=== PATIENT | male | born 1940 | race African-American/Black ===

== ENCOUNTER → 2016-11-05 | Outpatient (CLI) | payer MEDICARE, OTHER | END | disposition home or self-care (01) | LOC: PCVCCLINIC 15:09 | PROVIDERS: ATTEND Internal Medicine | DX: I47.1 Supraventricular tachycardia (principal); I12.9 Hypertensive chronic kidney disease with stage 1 through stage 4 chronic kidney disease, or unspecified chronic kidney disease; N18.3 Chronic kidney disease, stage 3 (moderate); I65.23 Occlusion and stenosis of bilateral carotid arteries; E78.5 Hyperlipidemia, unspecified; I48.0 Paroxysmal atrial fibrillation; M19.90 Unspecified osteoarthritis, unspecified site; Z96.642 Presence of left artificial hip joint; Z79.82 Long term (current) use of aspirin; Z87.891 Personal history of nicotine dependence | CPT/HCPCS: 93005; G0463 ==

== ENCOUNTER → 2016-11-20 | Outpatient (CLI) | payer MEDICARE, OTHER ==
[~2016-11-20] MED LIST: REGADENOSON 0.4 MG/5 ML DISP.SYRIN. IV ONE
--- NOTE | 2016-11-20 09:22 | PCVCIMAG ---
APPROVED REPORT Study performed: 11/20/2016 08:34:07 EXAM: Comprehensive 2D, Doppler, and color-flow Echocardiogram Status: routine BSA: 1.88 HR: 62 bpmBP: 150/85 mmHg Rhythm: NSR Other Information Study Quality: Good Risk Factors: Cardiac Risk Factors: HTN, Hyperlipidemia Indications Hypertension/HDD Renal Disease, Atrial tachycardia. 2D Dimensions LVEF(%): 64.30 (>50%) IVSd: 12.45 (7-11mm)LVOT Diam: 18.52 (18-24mm) LVDd: 46.49 mm PWd: 12.54 (7-11mm)Ascending Ao: 28.16 (22-36mm) LVDs: 30.22 (25-40mm) Left Atrium: 33.61 (27-40mm) Aortic Root: 28.78 mm LV Single Plane 4CH: 53.48 % LV Single Plane 2CH: 54.69 %[place] LVEF: 54.08 % Biplane EF: 54.4 % Volumes Left Atrial Volume (Systole) Single Plane 4CH: 31.37 mLSingle Plane 2CH: 38.09 mL LA ESV Index: 37.00 mL/m2 Aortic Valve AoV Peak Juan Francisco.: 1.34 m/s AO Peak Gr.: 7.18 mmHgLVOT Max P.63 mmHg LVOT Max V: 0.81 m/s NOE Vmax: 1.63 cm2 Mitral Valve E/A Ratio: 0.9 MV Decel. Time: 198.02 ms MV E Max Juan Francisco.: 0.74 m/s MV A Juan Francisco.: 0.86 m/s IVRT: 179.93 ms TDI E/Lateral E': 12.33E/Medial E': 14.80 Medial E' Juan Francisco.: 0.05 m/s Lateral E' Juan Francisco.: 0.06 m/s Pulmonary Valve PV Peak Gr.: 2.16 mmHg Pulmonary Vein P Vein S: 0.60 m/sP Vein A: 0.31 m/s P Vein D: 0.30 m/sP Vein A Dur.: 90.0 msec P Vein S/D Ratio: 2.00 Tricuspid Valve TR Peak Juan Francisco.: 2.93 m/s TR Peak Gr.: 34.29 mmHg Left Ventricle The left ventricle is normal size. There is normal LV segmental wall motion. Mild concentric left ventricular hypertrophy. Left ventricular systolic function is normal. The left ventricular ejection fraction is within the normal range. LVEF is 55%. Grade I diastolic dysfunction Right Ventricle The right ventricle is normal size. The right ventricular systolic function is normal. Atria The left atrium size is normal. The right atrium size is normal. Aortic Valve Trileaflet aortic valve, mildly sclerotic No aortic regurgitation is present. There is no aortic valvular stenosis. Mitral Valve The mitral valve is normal in structure. Trace to mild mitral valve regurgitation noted. No evidence of mitral valve stenosis. Tricuspid Valve The tricuspid valve is normal in structure. Trace tricuspid regurgitation. Pulmonary artery pressure is 41mmhg. Pulmonic Valve The pulmonary valve is normal in structure. Trace pulmonic regurgitation. Great Vessels The aortic root is normal in size. IVC is normal in size and collapses with >50% inspiration Pericardium There is no pericardial effusion. <Conclusion> Left ventricular systolic function is normal. There is normal LV segmental wall motion. Mild concentric left ventricular hypertrophy. LVEF is 55%. Grade I diastolic dysfunction Trileaflet aortic valve, mildly sclerotic, no aortic valvular stenosis or insufficiency. The mitral valve is normal in structure.Trace to mild mitral valve regurgitation Pulmonary artery pressure of 40mmHg There is no pericardial effusion.
--- NOTE | 2016-11-20 13:10 | PCVCIMAG ---
APPROVED REPORT Exam: Nuclear Stress Test Indication: Chest pain, Abn EKG, Paroxysmal Atrial Tachycardia Patient Location: Out-Patient Stress Nurse: Melania Mckeon RN, Tiana Henry RN MI Tech:Fadi JoinerCAMB Ht: 5 ft 5 in Wt: 186 lbs BSA: 1.92 m2 HR: 67 bpm BP: 200/94 mmHg BMI: 30.9 Rhythm: SR, ST and T Medical History Medical History: Age, Hyperlipidemia, HTN, CAD, CEA, Former Smoker Medications: ASA, Bumex, Clonidine, Doxazosin, Metoprolol (held 24 hours) Allergies: NKDA Pretest Chest Pain Characteristics: No chest pain Exercise History: Sedentary NM EXAM: Myocardial Perfusion REST/STRESS Imaging Protocol: Rest Tc-99m/Stress Tc-99m 1 day Resting Data Rest SPECT myocardial perfusion imaging was performed in supine position 45 minutes following the intravenous injection of 10.9 mCi of Tc-99m Sestamibi. Time of rest injection: 0930 Date: 11/20/2016 Pharmacologic Stress Pharmacologic stress test was performed by injecting Regadenoson 0.4 mg IV push followed by the intravenous injection of 35.3 mCi of Tc-99m Sestamibi. Time of stress injection: 1100 Date: 11/20/2016 The images were gated to evaluate regional wall motion and calculate left ventricular ejection fraction. Study Quality Study: Good Study Data Post stress, the left ventricular ejection was 76%.. SSS: 10 SRS: 1 SDS: 9 TID = 0.74. Perfusion Medium sized area of moderate reversible ischemia involving the basal inferior and mid/apical inferolateral left ventricle consistent with a circumflex distribution. Wall Motion Normal left ventricular size and function with no regional wall motion abnormalities. Nuclear Conclusion Medium sized area of moderate reversible ischemia involving the basal inferior and mid/apical inferolateral left ventricle consistent with a circumflex distribution. Normal left ventricular size and function with no regional wall motion abnormalities. No prior study available for comparison. Interpreted by: Andrew Wilson MD Electronically Approved: 11/20/2016 12:58:37 Stress Test Details Stress Test: Pharmacologic stress testing performed using 0.4 mg of regadenoson per 5 mL given IV over 10 seconds. Reason for pharmacologic stress test: physical limitation. HR Resting HR: 67 bpmMax Heart Rate (APMHR): 144 bpm Max HR Achieved: 86 bpmTarget HR (85% APMHR): 122 bpm % of APMHR: 59 Recovery HR: 82 bpm BP Resting BP: 200/94 mmHg Max BP: 196/102 mmHg ECG Resting ECG: Sinus Rhythm, nonspecific ST-T abnormalities Stress ECG: Sinus Rhythm, nonspecific ST-T abnormalities Arrhythmia: VPC's Recovery ECG: Sinus Rhythm, nonspecific ST-T abnormalities Clinical Reason for Termination: Completed protocol Stress Symptoms: None Exercise duration: min 55 sec Exercise capacity: 1.0 METs Scale: Active Stress ECG Conclusion Clinical: Non-ischemic ECG: Non-ischemic <Conclusion> Clinical: Non-ischemic ECG: Non-ischemic
== END | disposition home or self-care (01) ==
LOC: PCVCIMAG 08:26
PROVIDERS: ATTEND Internal Medicine
DX: I08.1 Rheumatic disorders of both mitral and tricuspid valves (principal); I47.1 Supraventricular tachycardia; I12.9 Hypertensive chronic kidney disease with stage 1 through stage 4 chronic kidney disease, or unspecified chronic kidney disease; N18.3 Chronic kidney disease, stage 3 (moderate); I65.23 Occlusion and stenosis of bilateral carotid arteries; R94.31 Abnormal electrocardiogram [ECG] [EKG]; K52.9 Noninfective gastroenteritis and colitis, unspecified; I73.9 Peripheral vascular disease, unspecified; E78.5 Hyperlipidemia, unspecified; I48.0 Paroxysmal atrial fibrillation; M06.9 Rheumatoid arthritis, unspecified; Z87.891 Personal history of nicotine dependence; Z79.899 Other long term (current) drug therapy
CPT/HCPCS: 78452; 93017; 93306; A9500; J2785

== ENCOUNTER → 2017-03-28 | Outpatient (CLI) | payer MEDICARE, OTHER | END | disposition home or self-care (01) | LOC: PCVCCLINIC 13:30 | DX: I25.118 Atherosclerotic heart disease of native coronary artery with other forms of angina pectoris (principal); I12.9 Hypertensive chronic kidney disease with stage 1 through stage 4 chronic kidney disease, or unspecified chronic kidney disease; N18.3 Chronic kidney disease, stage 3 (moderate); I65.23 Occlusion and stenosis of bilateral carotid arteries; I47.1 Supraventricular tachycardia; E78.5 Hyperlipidemia, unspecified; M79.605 Pain in left leg; R94.31 Abnormal electrocardiogram [ECG] [EKG]; Z87.891 Personal history of nicotine dependence; Z79.899 Other long term (current) drug therapy; Z79.82 Long term (current) use of aspirin | CPT/HCPCS: 80061; 93005; G0463 ==

== ENCOUNTER → 2017-10-03 | Outpatient (CLI) | payer MEDICARE, OTHER ==
--- NOTE | 2017-10-03 18:08 | PCVCIMAG ---
EXAM: BILATERAL LOWER EXTREMITY ARTERIAL DUPLEX INDICATION: Peripheral Arterial Disease. Leg pain. FINDINGS: Right Leg: Common femoral and femoral arteries are patent. High-grade stenosis distal superficial femoral artery. Occlusion of the distal popliteal artery and tibioperoneal trunk and proximal posterior tibial artery. Occlusion of the distal peroneal artery and areas of high-grade stenosis or occlusion in the anterior tibial artery. Left Leg: Common femoral and profunda femoral arteries are patent. Superficial femoral artery is patent. Occlusion of the distal cabazon popliteal artery and tibioperoneal trunk with areas of occlusion in the peroneal artery and posterior tibial artery. The anterior tibial artery shows occlusion of its midportion. 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 This includes occlusion of the right and left distal popliteal arteries and tibioperoneal trunks. LOC:[id number]
== END | disposition home or self-care (01) ==
LOC: PCVCIMAG 15:15
PROVIDERS: ATTEND Internal Medicine
DX: I25.118 Atherosclerotic heart disease of native coronary artery with other forms of angina pectoris (principal); I12.9 Hypertensive chronic kidney disease with stage 1 through stage 4 chronic kidney disease, or unspecified chronic kidney disease; N18.3 Chronic kidney disease, stage 3 (moderate); I73.9 Peripheral vascular disease, unspecified; E78.5 Hyperlipidemia, unspecified; I47.1 Supraventricular tachycardia; I65.23 Occlusion and stenosis of bilateral carotid arteries; Z87.891 Personal history of nicotine dependence; Z79.82 Long term (current) use of aspirin
CPT/HCPCS: 93005; 93925; G0463

== ENCOUNTER → 2018-08-29 | Outpatient (CLI) | payer MEDICARE, OTHER | END | disposition home or self-care (01) | LOC: PCVCCLINIC 15:00 | PROVIDERS: ATTEND Internal Medicine | DX: I12.9 Hypertensive chronic kidney disease with stage 1 through stage 4 chronic kidney disease, or unspecified chronic kidney disease (principal); N18.3 Chronic kidney disease, stage 3 (moderate); E78.5 Hyperlipidemia, unspecified | CPT/HCPCS: 36415 ==

== ENCOUNTER → 2019-01-20 | Outpatient (CLI) | payer MEDICARE, OTHER | END | disposition home or self-care (01) | LOC: PCVCCLINIC 15:30 | PROVIDERS: ATTEND Internal Medicine | DX: I25.811 Atherosclerosis of native coronary artery of transplanted heart without angina pectoris (principal); E78.5 Hyperlipidemia, unspecified; I65.23 Occlusion and stenosis of bilateral carotid arteries; I12.9 Hypertensive chronic kidney disease with stage 1 through stage 4 chronic kidney disease, or unspecified chronic kidney disease; N18.3 Chronic kidney disease, stage 3 (moderate); R94.31 Abnormal electrocardiogram [ECG] [EKG]; I73.9 Peripheral vascular disease, unspecified; I48.0 Paroxysmal atrial fibrillation; M06.9 Rheumatoid arthritis, unspecified; Z95.0 Presence of cardiac pacemaker; Z87.891 Personal history of nicotine dependence; Z79.82 Long term (current) use of aspirin; Z79.899 Other long term (current) drug therapy | CPT/HCPCS: 36415; 80061; 93005; G0463 ==